=== PATIENT | male | born 2000 | race African-American/Black ===

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

== ENCOUNTER 2021-07-26 18:54 | Emergency (ER) | payer OTHER ==
[~2021-07-26] VITALS: Ht 170.2 cm; Wt 201.8 kg
[~2021-07-26 18:54] MED LIST changes: +PREDNISONE 20 M20 MG PO; +PROVENTIL HFA6.7 G1 INH
[2021-07-26 21:51] LABS: ABSOLUTE NEUTROPHILS 6.6 thou/uL (1.4-8.2); BASOPHILS 0.5 % (0.0-2.0); EOSINOPHILS 1.1 % (0.0-3.0); HEMATOCRIT 39.3 % (42.0-52.0); HEMOGLOBIN 12.3 gm/dL (14.0-18.0); LYMPHOCYTES 31.9 % (24.0-44.0); MCH 28.1 pg (26.0-34.0); MCHC 31.3 g/dL (28.0-37.0); MCV 89.8 fL (80.0-100.0); MONOCYTES 8.4 % (1.0-8.0); PLATELET COUNT 411 thou/uL (150-400); POLYS 58.1 % (36.0-66.0); RBC 4.38 mil/uL (4.50-6.00); RDW 12.9 % (10.5-14.5); WBC 11.3 thou/uL (4.0-11.0)
[2021-07-26 22:20] LABS: CALCIUM 9.4 mg/dL (8.5-10.1); CREATININE 0.6 mg/dL (0.7-1.3); POTASSIUM 4.3 mmol/L (3.5-5.1)
[2021-07-26 22:25] LABS: ALBUMIN 3.6 g/dL (3.4-5.0); TOTAL BILIRUBIN 0.2 mg/dL (0.2-1.0); TOTAL PROTEIN 7.2 g/dL (6.4-8.2)
[2021-07-26 23:48] VITALS: BP 148/63
== END 2021-07-26 23:51 | disposition short-term general hospital (02) ==
LOC: ER 18:54
PROVIDERS: Emergency Medicine
DX: M54.50 Low back pain, unspecified (principal); M54.2 Cervicalgia; R10.829 Rebound abdominal tenderness, unspecified site; J45.909 Unspecified asthma, uncomplicated; Z79.51 Long term (current) use of inhaled steroids; Z91.010 Allergy to peanuts; V49.3XXA Car occupant (driver) (passenger) injured in unspecified nontraffic accident, initial encounter; Y93.89 Activity, other specified; Y92.89 Other specified places as the place of occurrence of the external cause; Y99.8 Other external cause status